=== PATIENT | male | born 1965 | race Caucasian/White ===

== ENCOUNTER 2022-12-16 11:00 | Emergency (ER) | payer OTHER ==
[2022-12-16] MEDS ORDERED: Sodium Chloride 0.9% 10 ML Syringe FLUSH PRN ×2 (11:08→13:07)
[2022-12-16 11:26] LABS: BASOPHILS ABSOLUTE AUTO 0.02 K/mm3 (0.01-0.08); BASOPHILS PERCENT AUTO 0.6 % (0.1-1.2); EOSINOPHILS ABSOLUTE AUTO 0.13 K/mm3 (0.04-0.54); EOSINOPHILS PERCENT AUTO 3.7 (0.8-7.0); HEMATOCRIT 44.2 % (40.1-51.0); HEMOGLOBIN 15.2 gm/dl (13.7-17.5); IMMATURE GRAN ABSOLUTE AUTO 0.01 K/mm3 (0.00-0.10); IMMATURE GRAN PERCENT AUTO 0.3 % (<=1.0); LYMPHOCYTES ABSOLUTE AUTO 0.81 K/mm3 (1.32-3.57); LYMPHOCYTES PERCENT AUTO 23.2 % (21.8-53.1); MEAN CORPUSCULAR HEMOGLOBIN 30.8 pg (25.7-32.2); MEAN CORPUSCULAR HGB CONC 34.4 g/dl (32.2-35.5); MEAN CORPUSCULAR VOLUME 89.5 fl (79.0-92.2); MONOCYTES ABSOLUTE AUTO 0.64 K/mm3 (0.30-0.82); MONOCYTES PERCENT AUTO 18.3 % (5.3-12.2); NEUTROPHILS ABSOLUTE AUTO 1.88 K/mm3 (1.78-5.38); NEUTROPHILS PERCENT AUTO 53.9 % (34.0-67.9); PLATELET COUNT,PLT 157 K/mm3 (163-337); RED BLOOD CELL COUNT 4.94 M/mm3 (4.63-6.08); WHITE BLOOD CELL COUNT,WBC 3.49 K/mm3 (4.23-9.07)
[2022-12-16 12:39] LABS: ALANINE AMINOTRANSFERASE,ALT 32 U/L (16-63); ALBUMIN 3.9 g/dl (3.4-5.0); ALKALINE PHOSPHATASE 50 U/L (46-116); ANION GAP 14.5 (5-15); ASPARTATE AMNIOTRANSFERASE,AST 27 U/L (15-37); BILIRUBIN TOTAL 0.9 mg/dL (0.2-1.0); BLOOD UREA NITROGEN,BUN 14 mg/dL (7-18); CARBON DIOXIDE,CO2 24 mEq/L (21-32); CHLORIDE,CL 103 mEq/L (98-107); EST CRCL DRUG DOSING (CG) 92.11 mL/min; ESTIMATED GFR 88 mL/min (>60); GLUCOSE RANDOM 107 mg/dL (70-99); MAGNESIUM 1.7 mg/dL (1.8-2.4); POTASSIUM,K 4.5 mEq/L (3.5-5.1); PROTEIN TOTAL,TP 7.8 g/dl (6.4-8.2); SODIUM,NA 137 mEq/L (136-145)
[2022-12-16 12:44] LABS: TROPONIN I HIGH SENSITIVITY < 4 pg/mL (<=76)
[2022-12-16] MEDS ORDERED: Ketorolac 60 MG/2 ML SDV IM ONE (13:00)
[2022-12-16] MEDS ORDERED: Cyclobenzaprine 10 MG Tab PO ONE (13:00)
[2022-12-16] MEDS ORDERED: Iopamidol 612 MG/ML 100 ML Bottle IVPUSH ONE (13:07)
[2022-12-16] MEDS ORDERED: Sodium Chloride 0.9% 100 ML IV SCH (13:15)
== END 2022-12-16 16:45 | disposition home or self-care (01) ==
LOC: JD.ED 11:00
DX: R07.89 Other chest pain (principal); R59.0 Localized enlarged lymph nodes
CPT/HCPCS: 36415; 71045; 71260; 80053; 83615; 83735; 84484; 84550; 85025; 85379; 93005; 99285; J3490; Q9967; 93010; 99284